=== PATIENT | male | born 1980 | race Caucasian/White ===

== ENCOUNTER 2016-05-14 21:21 | Emergency (ER) | payer OTHER ==
[~2016-05-14] VITALS: Ht 177.8 cm; Wt 152.3 kg
[~2016-05-14 21:21] MED LIST: HYG25 PO; IBUP-1827 PO
[2016-05-14 21:39] VITALS: BP 148/96; PULSE 103; RESP 20; O2SAT 98
--- NOTE | 2016-05-14 22:58 | ED.REPORT ---
HPI-Extremity Problem Upper Date of Service May 14, 2016 ED Provider: Renetta Hickey Patient is a 36 year old male who presents to the ED complaining of a R hand injury. He was carrying groceries when he fell and injured his R thumb and wrist with radiation to his R shoulder. He denies numbness, weakness, swelling, or any other symptoms. Nursing Notes Stated Complaint: POSS THUMB/SHOULDER FRACTURE Chief Complaint: Extremity Trauma Nursing Notes Reviewed: Yes Allergies: Coded Allergies: No Known Allergies (Unverified , 10/18/15) Scheduled Chlorthalidone (Chlorthalidone) 25 Mg Tablet 25 MG PO DAILY Scheduled PRN Ibuprofen (Ibuprofen) 600 Mg Tablet 600 MG PO QID PRN PRN For Pain General Time Seen by MD: 22:58 Chief Complaint Hand injury right Hx Obtained From: Patient Arrived By: Walk-in Past Medical History Past Medical History Reports: Asthma, Hypertension Past Surgical History None reported Smoking History Unknown if Ever Smoker Ambulatory Status Independent Review of Systems Musculoskeletal: Reports: Extremity pain (R arm, hand), Joint pain (R thumb, wrist ), Denies: Extremity swelling, Joint swelling Neurologic: Denies: Numbness, Weakness Complete sys rev & neg: except as marked. Physical Exam Initial Vital Signs Vital Signs (First) Date Time Temp Pulse Resp B/P Pulse Ox O2 Delivery O2 Flow Rate FiO2 05/14/16 21:39 36.9 103 20 148/96 98 Initial VS: Reviewed, Vital signs abnormal General/Constitutional: Well-developed, Well-nourished Head / Eyes: Atraumatic, Normocephalic Neck: Full range of motion Respiratory: No respiratory distress Cardiovascular: Intact distal pulses Skin: Warm, Dry Neurologic: Alert, Oriented, Nonfocal Psychiatric: Mood/affect normal, Behavior normal, Normal thought content Upper Extremity / MS: Atraumatic, Inspection NL, Full range of motion, No swelling, No snuffbox tenderness, Neurologic intact, Vascular intact, Tendon function NL Wrist / Hand: Inspection NL, No snuffbox tenderness, Tendon function NL Thumb collateral ligaments intact. Interpretation & Diagnostics X-Ray Interpretation Xray Interpretation: No fracture Study Performed: R hand/ wrist X-Ray Ordered: Wrist right, Hand right Interpretation / Wet Read by: Interpret - ED physician Re-Eval/Medical Decision Med Decision/Clinical Course The patient has an isolated right arm injury, he has full range of motion and x- rays. There is no sign of ligament or tendon injury. Re-Evaluation/Progress : Time of Eval: 23:07 Re-Evaluation/Progress Note: Rechecked patient. Discussed plan for discharge. Patient understands and agrees with plan. All questions addressed at this time. Counseled Regarding: Diagnosis, Lab results, Need for follow-up, When/why to return to ED Discharge & Departure Impression: Primary Impression: Thumb sprain Encounter type: initial encounter Laterality: right Qualified Code: S63.601A - Unspecified sprain of right thumb, initial encounter Additional Impression: Wrist sprain Encounter type: initial encounter Laterality: right Qualified Code: S63.501A - Unspecified sprain of right wrist, initial encounter Disposition: Home Additional Instructions: Thank you for entrusting us with your care. Your X-ray and examination do not indicate a fracture. Ice and elevated your injury as needed for the next few days. You make take Tylenol or Ibuprofen as needed for pain. Follow up with your primary care physician if your symptoms do not improve. Return to the emergency department if you experience worsening or concerning symptoms. Referrals: Solomon Turner DO (PCP) Scribe Attestation Portions of this note were transcribed by Johann Gardinre. I, Dr. Hickey personally performed the history, physical exam and medical decision-making; I reviewed and confirmed the accuracy of the information in the transcribed note. Signed by: Johann Gardiner 05/14/16, 6635 copies to: Solomon Turner DO Lopez, Jena M MD May 14, 2016 22:58 JOHANN GARDINER May 14, 2016 23:04
--- NOTE | 2016-05-15 09:14 | DRSVH ---
PROCEDURE: X-RAY RIGHT WRIST COMPLETE, MINIMUM THREE VIEWS ([id number]) INDICATIONS: FALL, RIGHT THUMB, HAND WRIST PAIN TECHNIQUE: 4 views of the wrist were acquired. COMPARISON: None. FINDINGS: Bones: No fractures or dislocations. No suspicious bony lesions. Scaphoid view: Intact scaphoid. Soft tissues: No suspicious soft tissue calcifications. IMPRESSION: No displaced fracture seen. If there is continued pain, followup exam or additional selin ging such as MRI or CT could be performed for further assessment. Dictated by: Daniel Michelle RRA Interpreted: Alis Matthews MD on 05/15/2016 at 9:14 Transcribed by: ESSENCE on 05/15/2016 at 9:14 Approved by: Alis Matthews MD, PhD on 05/15/2016 at 17:00
--- NOTE | 2016-05-15 09:15 | DRSVH ---
PROCEDURE: X-RAY RIGHT HAND, MINIMUM THREE VIEWS ([id number]) INDICATIONS: FALL, RIGHT THUMB, HAND WRIST PAIN TECHNIQUE: 3 views of the hand(s) acquired. COMPARISON: None. FINDINGS: Bones: No fractures or dislocations. Carpal bones are normally aligned. No suspicious bony lesions . Soft tissues: No suspicious soft tissue calcifications. IMPRESSION: No displaced fracture seen. If there is continued pain, followup exam or additional selin ging such as MRI or CT could be performed for further assessment. Dictated by: Daniel Michelle RRA Interpreted: Alis Matthews MD on 05/15/2016 at 9:14 Transcribed by: ESSENCE on 05/15/2016 at 9:15 Approved by: Alis Matthews MD, PhD on 05/15/2016 at 17:00
[2016-08-13] MEDS ORDERED: LISI-567 PO (13:43)
[2016-08-13] MEDS ORDERED: METF500T4 PO (13:43)
[2016-08-13] MEDS ORDERED: PHEN15CA67 PO (13:43)
== END 2016-05-14 23:25 | disposition home or self-care (01) ==
LOC: SED 21:21
DX: S63.601A Unspecified sprain of right thumb, initial encounter (principal); S63.501A Unspecified sprain of right wrist, initial encounter; W19.XXXA Unspecified fall, initial encounter; Y92.009 Unspecified place in unspecified non-institutional (private) residence as the place of occurrence of the external cause; Y93.89 Activity, other specified; Y99.8 Other external cause status; J45.909 Unspecified asthma, uncomplicated; I10 Essential (primary) hypertension

== ENCOUNTER 2016-08-15 12:30 | Day surgery (SDC) | payer OTHER ==
[~2016-08-15] VITALS: Ht 177.8 cm; Wt 150.2 kg
[~2016-08-15 12:30] MED LIST changes: -IBUP-1827 PO; +LISI-567 PO; +Lactated Ringer's 1,000 ML IV ONE; +Lactated Ringer's 1,000 ML IV SCH; +METF500T4 PO; +PHEN15CA67 PO
[2016-08-15] MEDS ORDERED: Propofol 10,000 mCg/mL 20 mL Inj ONE (12:31)
[2016-08-15 12:56] VITALS: BP 128/67; PULSE 68; RESP 16; O2SAT 98
[2016-08-15] MEDS ORDERED: MetoCLOpramide 5 mg/mL 2 mL Inj IVPUSH PRN (13:15)
[2016-08-15] MEDS ORDERED: Lactated Ringer's 1,000 ML IV SCH (13:15)
[2016-08-15] MEDS ORDERED: Ondansetron 2 mg/mL 2 mL Inj IVPUSH PRN (13:15)
--- NOTE | 2016-08-15 13:15 | PCM.HPANE ---
Patient Data Date of Service: Aug 15, 2016 Surgeon Admitting Provider: Attending Provider:Bhavik Mata MD Primary Care Physician:Solomon Turner DO Other Provider: Reason for Visit Family History Of Colon Cancer Ht/WT & BMI Height (Feet): 5 Height (Inches): 10 Weight (Kilograms): 150.17 Body Mass Index 47.00 Allergies Coded Allergies: No Known Drug Allergies (Verified Allergy, Unknown, 08/13/16) Past Anesthesia History Anesthesia History: Denies:: Abnormal Airway, Difficult Intubation Diabetes History Hx Diabetes?: No Current Bedside Blood Glucose: 96 MRSA MRSA: No Medications Reported Medications Phentermine 15 Mg [id number] Mg PO 08/13/16 Metformin 500 Mg [id number] Mg PO BID Ref 0 08/13/16 Lisinopril 20 Mg [id number] Mg PO DAILY 30 Days Ref 0 08/13/16 Chlorthalidone 25 Mg [id number] Mg PO DAILY #30 TABLET 10/18/15 Discontinued Scripts Ibuprofen 600 Mg [id number] Mg PO QID PRN For Pain #30 TABLET Prov:Osmani Mensah MD 10/18/15 History History of ENT Problems?: Yes HEENT History: Positive for:: Difficult Intubation (possible) Denies:: Abnormal Airway Hearing Problem Denture Type: None Teeth Condition: Within Normal Limits Hx of Heart Problems?: Yes Cardiovascular History: Positive for:: Chest Pain (non cardiac) Hypertension Denies:: Congestive Heart Failure Hx of Respiratory Problem?: No Respiratory History: Denies:: Tuberculosis Hx Neurologic Problems?: No Neurological History: Denies:: CVA Hx of GI Problems?: No Hx of Problems?: No HX of Peritoneal Dialysis: No Hx Musculoskeletal Problems?: No Psycho Social History: Positive for:: Anxiety Hx Depression Hx Surgeries?: No Hx Any Other Health Problems?: Yes Hx Diabetes: NoBedside Blood Glucose: 96 Hx Alcohol Use: NoHx Substance Use: No Smoking Status: Unknown if Ever Smoker Have You Smoked inLast 12 mo: No Stop/Bang Treated for Sleep Apnea?: No Do You Have a CPAP Machine?: No S-Snoring: Do You Snore Loudly: Yes O-Obsered: Observed not breath: No P-Blood Pressure: treated: Yes A- Age over 50: No N- Neck Large Circumference: Yes G- Gender Male: Yes OLGA Risk Assessment: High Risk, =/>3 Yes OLGA Category 4 OutPt Procedure: Yes Risk Assessment Category Category 1A: Patient has history of documented sleep apnea, and HAS NOT received any narcotic, sedative or anesthesia administration during this stay. Category 1B: Patient has history of documented sleep apnea, and HAS received any narcotic , sedative or anesthesia administration during this stay Category 2: Patient has SUSPECTED Obstructive Sleep Apnea, and HAS received any narcotic , sedative or anesthesia administration during this stay. Category 3: Patient has SUSPECTED Obstructive Sleep Apnea and HAS NOT received narcotic, sedative or anesthesia administration during this stay. Category 4: Outpatient in Procedural Areas with known sleep apnea or who screen positive for High Risk via the STOP/BANG questionnaire. Exam Exam Vital Signs Vital Signs Date Time Temp Pulse Resp B/P Pulse Ox O2 Delivery O2 Flow Rate FiO2 08/15/16 12:56 36.3 68 16 128/67 98 Room Air General Appearance: Alert, Oriented X3, Cooperative, No Acute Distress HEENT/AIRWAY: MP 3, Neck Movement (Thick) Lungs: Clear to Auscultation, Normal Air Movement Heart: Regular Rate/Rhythm, Normal S1, Normal S2 Meds/Labs/Diagnostics Admission Meds Current Medications Lactated Ringer's (Lr) 1,000 ml @ 10 mls/hr Q24H ONCE IV Last administered on 08/15/16t 13:11; Start 08/15/16 at 06:00; Stop 08/16/16 at 05:59 Bedside Blood Glucose: 96 Plan Impression Patient chart reviewed, patient interviewed and anesthestic plan with risks, benefits, and alternatives discussed, and informed consent obtained. NPO per Anesth. Guidelines: Yes ASA Physical Status: ASA3 Severe Disease (morbid obesity) Anesthetic Plan: MAC Bene/Risks/Altern/Consents: Yes HP Complete Prior to Induction: Yes Dayne Urias MD Aug 15, 2016 13:15
[2016-08-15 14:01] VITALS: BP 142/65; PULSE 95; RESP 12; O2SAT 97
--- NOTE | 2016-08-15 14:03 | PCM.ENDCOL ---
Colonoscopy Date of Service: Aug 15, 2016 Physician Bhavik Mata MD Pre Procedure Diagnosis: Screening family history of colon cancer Post Procedure Dx & Findings: Polyp hemorrhoids diverticuli Procedure Colonoscopy PROCEDURE IN DETAIL: Prep adequate Withdrawal time 23 minutes After unremarkable rectal examination the Olympus video colonoscope was inserted patient's anal canal and was advanced to cecum. Landmarks were identified including the ileocecal valve and appendiceal orifice. Scope was withdrawn systematically. Visualized colonic mucosa showed healthy shiny mucosa with normal healthy-appearing vasculature. Patient had multiple diverticuli in the sigmoid and the distal descending. These were large and somewhat very small. In the colon, there was 1.5 cm polyp. Snare was deployed after moving the polyp around to make sure there was diverticuli near at the base. There was no diverticula near the base. Hot snare was used. However the polyp just came right off. It was a very soft and he came right off. Then we inspected the base carefully and noted that this was a polypoid lesion coming from the diverticulum. In the rectum retroflexion was done which showed hemorrhoids. Anal canal was inspected carefully on the way out and hemorrhoids noted. Impression Polyp 1 status post complete removal. It appears that polypoid lesion was coming from the diverticulum. Multiple diverticuli Hemorrhoids Recommendation Repeat colonoscopy [address] of the abdomen and pelvis. Presedation Assessment Risks and Benefits Informed consent was obtained from the patient after all risks and benefits including but not limited to drug reaction, infection, pain, bleeding, perforation, as well as alternatives were discussed. Patient monitoring Continuous pulse oximetry, cardiac monitoring, blood pressure monitoring, IV access, and oxygen at 2L per nasal cannula. Complications There were no periprocedural complications identified. Post Procedure Plan Post Procedure Recommendations 1. Restrict activities today. 2. Resume normal activities in the morning. 3. Resume medications. 4. Patient informed of normal post procedure side effects as bloating, drowsiness, blood streaking in the stool. 5. average risk CRCS. If colon polyps come back as: -Hyperplastic- can repeat colonoscopy in 10 years -Tubular adenoma- repeat colonoscopy in 5 years -Tubulovillous/villous adenoma- repeat colonoscopy in 3 years -If any dysplasia- return to clinic as soon as possible 6. Please don't hesitate to call me with any questions. Bhavik Mata MD Aug 15, 2016 14:03
[2016-08-15 14:09] VITALS: BP 135/73; PULSE 75; RESP 12; O2SAT 97
--- NOTE | 2016-08-15 14:12 | PCM.ANEP1 ---
Post Anesthesia PACU Phase 1 Assessment Date of Service: Aug 15, 2016 Vital Signs Vital Signs Date Time Temp Pulse Resp B/P Pulse Ox O2 Delivery O2 Flow Rate FiO2 08/15/16 14:09 75 12 135/73 97 Room Air 08/15/16 14:01 95 12 142/65 97 Room Air 08/15/16 12:56 36.3 68 16 128/67 98 Room Air Anesthetic Administered: MAC Level of Alertness: Awake, talking HERRON's with Equal Strength: Yes Pain: No Nausea or Vomiting: No CV Function & Hydration Stable: Yes Airway Device: Lungs: Normal Air Movement PACU Phase 2 Assessment Complications: No Follow up Care: No Patient Instructions Provided: N/A Dayne Urias MD Aug 15, 2016 14:12
[2016-08-15 14:15] VITALS: BP 135/73; PULSE 75; PULSE 87; RESP 12; O2SAT 97
--- NOTE | 2016-08-15 14:56 | DRSVH ---
PROCEDURE: CT ABDOMEN AND PELVIS WITHOUT CONTRAST ([id number]) INDICATIONS: 36 year-old male with possible colon perforation after colonoscopy. TECHNIQUE: Noncontrast 5 mm thick sections acquired from the diaphragms to the symphysis. 5 mm coronal and sagi ttal reformats were then performed. For radiation dose reduction, the following was used: automated exposure control, adjustment of mA and/or kV according to patient size. COMPARISON: None. FINDINGS: Image quality: Excellent. ABDOMEN: Lung bases: Lung bases are clear. Heart size is normal. Solid organs: Liver and spleen are normal in size, with diffuse fatty infiltration of the liver. Ga llbladder wall thickness is normal. Pancreas is normal in contours. No adrenal nodules. Kidneys ar e normal in size, without hydronephrosis or nephrolithiasis. 1.2 cm exophytic medial left renal corti adelia simple cyst is present. Peritoneum and bowel: Unenhanced bowel loops demonstrate normal wall thickness and caliber. Descend ing and sigmoid colon diverticula are present. There is localized inflammatory fat stranding around t he sigmoid colon. No free fluid or air. Nodes and vessels: No retroperitoneal or mesenteric adenopathy by size criteria. Aorta and inferior vena cava are normal in caliber. Miscellaneous: Small fat-containing periumbilical ventral hernia is present. PELVIS: Genitourinary: Bladder wall thickness is normal. Prostate gland is normal in size. Miscellaneous: No inguinal hernias or adenopathy. Bones: No suspicious bony lesions. No vertebral body compression fractures. IMPRESSION: 1. No evidence for bowel perforation after colonoscopy. 2. Findings consistent with mid-sigmoid colon diverticulitis. 3. Diffuse fatty infiltration of the liver. Dictated by: David Rodriguez M.D. on 08/15/2016 at 13:45 Approved by: David Rodriguez M.D. on 08/15/2016 at 13:55
--- NOTE | 2016-08-19 14:12 | PATH ---
SURGICAL PATHOLOGY Attending Physician:Bhavik Mata M.D. CASE STATUS: Signed Out PATIENT NAME: ILIANA GALLEGO PID: [id number] : 1980 DATE COLLECTED:08/15/2016 00:00 SPECIMEN: Colon, Polyp CLINICAL HISTORY: FAMILY HISTORY COLON CANCER 1). SIGMOID POLYP X1 FINAL DIAGNOSIS: 1.SIGMOID COLON POLYP: POLYPOID FRAGMENTS OF GRANULATION TISSUE (INFLAMMATORY PSEUDOPOLYP). No evidence of malignancy or dysplasia. [id number] GROSS DESCRIPTION: The specimen is received in formalin, labeled with the patient's name, sublabeled as sigmoid colon polyp and consists of multiple fragments of guadarrama-white glistening rubbery semi-translucent tissue (1.0 x 0.5 x 0.2 cm in aggregate). 08/17/16 MICRO DESCRIPTION: See diagnosis. ICD-9 CODES: CPT CODES: 1: 26874 Electronically Signed Out Austin Major MD [facility] Pathology [facility] [address], [place] [address] Technical component performed at [facility], [facility] [address], [place], [address]
== END 2016-08-15 23:59 | disposition home or self-care (01) ==
LOC: END 12:30
PROVIDERS: ATTEND Internal Medicine
DX: Z12.11 Encounter for screening for malignant neoplasm of colon (principal); Z80.0 Family history of malignant neoplasm of digestive organs; K51.40 Inflammatory polyps of colon without complications; K57.30 Diverticulosis of large intestine without perforation or abscess without bleeding; I10 Essential (primary) hypertension; E11.9 Type 2 diabetes mellitus without complications; F41.8 Other specified anxiety disorders; E66.01 Morbid (severe) obesity due to excess calories; Z68.42 Body mass index [BMI] 45.0-49.9, adult; Z79.84 Long term (current) use of oral hypoglycemic drugs
CPT/HCPCS: 45385; 74176; 88305; J7120